=== PATIENT | female | born 1965 | race Caucasian/White ===

== ENCOUNTER 2016-08-18 06:00 | Emergency (ER) | payer MEDICAID ==
--- NOTE | 2016-08-18 06:37 | EDM.PDOC ---
ED HPI GENERAL MEDICAL PROBLEM - General Chief Complaint: General Stated Complaint: neck and head pressure Time Seen by Provider: 08/18/16 06:23 Source of Information: Reports: Patient History Limitations: Reports: No limitations - History of Present Illness INITIAL COMMENTS - FREE TEXT/NARRATIVE: Patient arrives to the ED with complaints of head, neck, and jaw pressure, left side only. She has had a 2 week sinus infection for which she was started on augmentin Thursday. She does complain of some stomach pain and diarrhea that started on Thursday. She did see a chiropractor friend for her neck pain on Thursday. She was adjusted at that time. Chiropractor told her that her neck was not really out of alignment. She denies history of smoking, drinking, or drug use. Medical history includes hypothyroidism and does take synthroid. She also describes chest pressure. Head pressure is described as at the posterior and along her left eye. Denies SOB, LOC, nausea or vomiting, no diaphoresis. No urinary complaints. Given ASA on arrival. Onset: gradual Onset Date: 08/16/16 Duration: Intermittent Location: Reports: face, neck, chest Quality: Reports: Pressure Severity: moderate Associated Symptoms: Reports: chest pain, cough, headaches upper chest Pain Score (Numeric/FACES): 6 - Related Data Allergies Allergy/AdvReac Type Severity Reaction Status Date / Time clarithromycin [From Biaxin] Allergy Blurred Verified 08/18/16 07:14 Vision codeine Allergy Shortness Verified 08/18/16 07:14 of Breath red dye Allergy Rash Verified 08/18/16 07:14 Sulfa (Sulfonamide Allergy Rash Verified 08/18/16 07:14 Antibiotics) green dye Allergy Rash Uncoded 08/18/16 07:14 Home Meds: Home Meds Amoxicillin/Clavulanate K [Augmentin 875 MG/125 MG] 1 tab PO BID 08/18/16 [ History] Levothyroxine Sodium [Synthroid] 50 mcg PO DAILY 08/18/16 [History] ED ROS GENERAL - Review of Systems Review Of Systems: See Below Constitutional: Reports: no symptoms HEENT: Reports: Sinus problem, Other (neck pain/pressure) Respiratory: Reports: No Symptoms Cardiovascular: Reports: Other Endocrine: Reports: no symptoms GI/Abdominal: Reports: No symptoms : Reports: no symptoms Musculoskeletal: Reports: neck pain Skin: Reports: no symptoms Neurological: Reports: No Symptoms Psychiatric: Reports: No symptoms Hematologic/Lymphatic: Reports: no symptoms Immunologic: Reports: no symptoms ED EXAM, GENERAL - Physical Exam Exam: See Below Exam Limited By: No limitations General Appearance: alert, WD/WN, mild distress Eye Exam: bilateral eye: EOMI, normal inspection, PERRL Ears: normal TMs Nose: normal inspection Throat/Mouth: Normal inspection, Normal oropharynx Head: atraumatic, normocephalic Neck: normal inspection, supple Respiratory/Chest: no respiratory distress, lungs clear, normal breath sounds, no accessory muscle use, chest non-tender Cardiovascular: normal peripheral pulses, regular rate, rhythm, no edema, no gallop GI/Abdominal: normal bowel sounds, soft, non tender, no organomegaly Extremities: normal inspection, normal range of motion, non-tender, normal capillary refill Neurological: alert, oriented, CN II-XII intact, normal cognition, normal gait, normal reflexes, no motor/sensory deficits Psychiatric: normal affect, anxious Skin Exam: Warm, Dry, Intact Lymphatic: no adenopathy Course - Vital Signs Last Recorded V/S: Last Vital Signs Temp 36.3 C 08/18/16 06:05 Pulse 82 08/18/16 06:05 Resp 16 08/18/16 06:05 BP 131/74 08/18/16 06:05 Pulse Ox 99 08/18/16 06:05 - Orders/Labs/Meds Orders: Active Orders 24 hr Category Date Time Status EKG Documentation Completion [RC] URGENT Care 08/18/16 06:23 Active Head wo Cont [CT] Stat Exams 08/18/16 06:58 Taken Max Facial Sinus wo Cont [CT] Stat Exams 08/18/16 06:58 Taken Labs: Laboratory Tests 08/18/16 08/18/16 08/18/16 Range/Units 06:43 06:43 06:43 WBC 4.6 (4.0-10.0) x10^3/uL RBC 4.68 (4.00-5.50) x10^6/uL Hgb 13.0 (12.0-16.0) g/dL Hct 40.3 (33.0-47.0) % MCV 86.1 (78.0-93.0) fL MCH 27.8 (26.0-32.0) pg MCHC 32.3 (32.0-36.0) g/dL RDW Coeff of Dari 12.9 (10.0-15.0) % Plt Count 268 (130-400) x10^3/uL Neut % (Auto) 64.8 (50.0-80.0) % Lymph % (Auto) 24.2 L (25.0-50.0) % [place] % (Auto) 9.7 (2.0-11.0) % Eos % (Auto) 0.9 (0.0-4.0) % Baso % (Auto) 0.4 (0.2-1.2) % PT 10.7 (10.0-12.8) SEC INR 0.9 L (2.0-3.5) Sodium 142 (136-145) mmol/L Potassium 3.4 L (3.5-5.1) mmol/L Chloride 103 (98-107) mmol/L Carbon Dioxide 31 (21-32) mmol/L BUN 9 (7-18) mg/dL Creatinine 0.8 (0.55-1.02) mg/dL Est Cr Clr Drug Dosing 70.89 mL/min Estimated GFR (MDRD) > 60 Glucose 101 (74-106) mg/dL Calcium 9.3 (8.5-10.1) mg/dL Corrected Calcium 9.22 (8.5-10.1) mg/dL Total Bilirubin 0.4 (0.2-1.0) mg/dL AST 15 (15-37) U/L ALT 19 (14-59) U/L Alkaline Phosphatase 84 (46-116) U/L Creatine Kinase 37 (26-192) U/L POC Troponin I (0.00-0.08) ng/mL Total Protein 8.1 (6.4-8.2) g/dL Albumin 4.1 (3.4-5.0) g/dL Globulin 4.0 Albumin/Globulin Ratio 1.03 TSH, Ultra Sensitive (0.358-3.74) uIU/mL 08/18/16 08/18/16 Range/Units 06:43 06:48 WBC (4.0-10.0) x10^3/uL RBC (4.00-5.50) x10^6/uL Hgb (12.0-16.0) g/dL Hct (33.0-47.0) % MCV (78.0-93.0) fL MCH (26.0-32.0) pg MCHC (32.0-36.0) g/dL RDW Coeff of Dari (10.0-15.0) % Plt Count (130-400) x10^3/uL Neut % (Auto) (50.0-80.0) % Lymph % (Auto) (25.0-50.0) % [place] % (Auto) (2.0-11.0) % Eos % (Auto) (0.0-4.0) % Baso % (Auto) (0.2-1.2) % PT (10.0-12.8) SEC INR (2.0-3.5) Sodium (136-145) mmol/L Potassium (3.5-5.1) mmol/L Chloride (98-107) mmol/L Carbon Dioxide (21-32) mmol/L BUN (7-18) mg/dL Creatinine (0.55-1.02) mg/dL Est Cr Clr Drug Dosing mL/min Estimated GFR (MDRD) Glucose (74-106) mg/dL Calcium (8.5-10.1) mg/dL Corrected Calcium (8.5-10.1) mg/dL Total Bilirubin (0.2-1.0) mg/dL AST (15-37) U/L ALT (14-59) U/L Alkaline Phosphatase (46-116) U/L Creatine Kinase (26-192) U/L POC Troponin I 0.01 (0.00-0.08) ng/mL Total Protein (6.4-8.2) g/dL Albumin (3.4-5.0) g/dL Globulin Albumin/Globulin Ratio TSH, Ultra Sensitive 1.992 (0.358-3.74) uIU/mL Meds: Medications Discontinued Medications Generic Name Dose Route Start Last Admin Trade Name Freq PRN Reason Stop Dose Admin Aspirin 324 mg 08/18/16 06:38 08/18/16 07:18 Aspirin PO 08/18/16 06:39 324 mg ONETIME ONE Administration Lorazepam 0.5 mg 08/18/16 06:59 08/18/16 07:17 Ativan PO 08/18/16 07:00 0.5 mg ONETIME ONE Administration Departure - Departure Time of Disposition: 08:05 Disposition: Home, Self-Care 01 Condition: good Clinical Impression: Sinusitis, acute Qualifiers: Sinusitis location: maxillary Recurrence: not specified as recurrent Qualified Code(s): J01.00 - Acute maxillary sinusitis, unspecified Instructions: Sinusitis, Adult, [id number] Referrals: Soraida Morgan PA-C [Primary Care Provider] - Forms: ED Department Discharge Additional Instructions: I did change your antibiotic to amoxicillin. Discontinue the augmentin Use a nasal rinse to irrigate your sinus cavities - use distilled water Use a decongestant and antihistamine like pseudoephedrine Please follow up with your primary care provider Call us with any questions or concerns - Problem List & Annotations (1) Sinusitis, acute SNOMED Code(s): 20520357 Code(s): J01.90 - ACUTE SINUSITIS, UNSPECIFIED Status: Acute Priority: Low Qualifiers: Sinusitis location: maxillary Recurrence: not specified as recurrent Qualified Code(s): J01.00 - Acute maxillary sinusitis, unspecified - Problem List Review Problem List Initiated/Reviewed/Updated: Yes - My Orders Last 24 Hours: My Active Orders 08/18/16 06:23 EKG Documentation Completion [RC] URGENT 08/18/16 06:58 Head wo Cont [CT] Stat Max Facial Sinus wo Cont [CT] Stat - Assessment/Plan Last 24 Hours: My Active Orders 08/18/16 06:23 EKG Documentation Completion [RC] URGENT 08/18/16 06:58 Head wo Cont [CT] Stat Max Facial Sinus wo Cont [CT] Stat Assessment:: sinusitis Plan: I did change your antibiotic to amoxicillin. Discontinue the augmentin Use a nasal rinse to irrigate your sinus cavities - use distilled water Use a decongestant and antihistamine like pseudoephedrine Please follow up with your primary care provider Call us with any questions or concerns
[2016-08-18] MEDS ORDERED: Aspirin 81 MG Tab.Chew PO ONE (06:38)
[2016-08-18] MEDS ORDERED: LORazepam 0.5 MG Tab PO ONE (06:59)
[2016-08-18 07:13] VITALS: BP 131/74
[2016-08-18 07:20] LABS: CHLORIDE,CL 103 mmol/L (98-107); SODIUM,NA 142 mmol/L (136-145)
== END 2016-08-18 08:31 | disposition home or self-care (01) ==
LOC: VM.ED 06:00
DX: J01.00 Acute maxillary sinusitis, unspecified (principal); Z88.5 Allergy status to narcotic agent; Z88.2 Allergy status to sulfonamides; Z79.899 Other long term (current) drug therapy
CPT/HCPCS: 36415; 70450; 70486; 80053; 82550; 84443; 84484; 85025; 85610; 93005; 99285; A9270

== ENCOUNTER 2016-09-06 14:01 | Emergency (ER) | payer MEDICAID ==
[2016-09-06] MEDS ORDERED: diphenhydrAMINE 25 MG Cap PO ONE (14:31)
[2016-09-06 14:36] VITALS: BP 130/82
--- NOTE | 2016-09-07 23:24 | ER ---
Date of Service: 09/06/2016 SUBJECTIVE: Kassandra presents to the emergency room with complaints of allergic reaction. The patient states that recently started using some instant nasal drops and since using them, developed itching to her face, sore throat, and swelling to her nose. The patient states that she also was exposed to someone who was spraying their lawn and feels that this may have been the culprit as well. PAST MEDICAL HISTORY: Hypothyroidism. MEDICATIONS: 1. Vitamin B complex. 2. Levothyroxine. ALLERGIES: Clarithromycin, codeine, red dyes, sulfa, and green dye. REVIEW OF SYSTEMS: General: No fever or chills. HEENT: Please see history of present illness. Respiratory: No shortness of breath. Cardiac: Denies any substernal chest pain. No jaw, arm, neck, or back pain. GI: No nausea, vomiting, or diarrhea. No melena, hematochezia, or hematemesis. : Denies any dysuria. Musculoskeletal: No myalgias or arthralgias. Neurologic: No fainting, blackouts, or lightheadedness. PHYSICAL EXAMINATION: General: This is a 51-year-old female patient, who is in no acute distress. Vital Signs: Blood pressure is 130/82, respiratory rate 16, O2 saturations 99%, temperature is 36.1, pulse rate is 74. SKIN: Warm, pink, and dry. HEENT: Head is normocephalic, atraumatic. Eyes, PERRLA. Extraocular movements are intact. Ears, TMs are clear. Mouth, oral mucosa is moist. The patient's nasal mucosa is somewhat inflamed. There is no erythema to the patient's face, however, the patient does relate that the skin to her midface region is itching and burning. No swelling is noted. The patient's airway is patent. She is not experiencing any stridor. Lungs: Clear to auscultation. Heart: Regular rate and rhythm. Abdomen: Soft, nontender. There is no hepatosplenomegaly or masses noted. Extremities: Without edema. ASSESSMENT: Mild allergic reaction. RECOMMENDATIONS: It is unclear what the specific allergen was. The patient was advised to abstain from using the homeopathic nasal drops that she had recently started using. Also, I did offer her an injection of Kenalog, but she refused stating that she did not want to take any steroids. Subsequently, offered her injection of Benadryl, which she refused as well. I then offered her Benadryl orally in pill form, but she refused as the capsule on the outside of the pill was red in color and she was concerned she would be allergic to it. The patient was advised to return to the emergency room if she develops any shortness of breath, chest tightness, weakness, or other worrisome signs or symptoms. All questions were answered. MWK: 09/07/2016 19:48:11 MODL: 09/07/2016 22:11:31 /[id number]
== END 2016-09-06 14:40 | disposition home or self-care (01) ==
LOC: VM.ED 14:01
DX: T78.40XA Allergy, unspecified, initial encounter (principal); E03.9 Hypothyroidism, unspecified; Z88.1 Allergy status to other antibiotic agents; Z88.5 Allergy status to narcotic agent; Z91.048 Other nonmedicinal substance allergy status; Z88.2 Allergy status to sulfonamides
CPT/HCPCS: 99283

== ENCOUNTER 2017-07-28 08:59 | Observation (INO) | payer MEDICAID ==
[2017-07-28 10:10] LABS: CHLORIDE,CL 104 mmol/L (98-107); SODIUM,NA 142 mmol/L (136-145)
[2017-07-28] MEDS ORDERED: Aspirin 81 MG Tab.Chew PO ONE (10:45)
[2017-07-28] MEDS ORDERED: Nitroglycerin 0.4 MG Tab.SL SL ONE (10:45)
[2017-07-28] MEDS ORDERED: Sodium Chloride 0.9% 10 ML Syringe FLUSH PRN (10:45)
[2017-07-28] MEDS: Sodium Chloride 0.9% with KCl 1,000 ML IV SCH ×3 (11:34→21:45)
[2017-07-28] MEDS: Cholecalciferol (Vitamin D3) 1,000 Unit Tab PO SCH (11:34)
[2017-07-28] MEDS: Levothyroxine 50 MCG Tab PO SCH ×2 (11:43→17:16)
[2017-07-28] MEDS ORDERED: GI Cocktail Oral Solution 30 ML PO ONE (12:10)
--- NOTE | 2017-07-28 12:19 | EDM.PDOC ---
ED HPI GENERAL MEDICAL PROBLEM - General Chief Complaint: Chest Pain Stated Complaint: CHEST PAINS Time Seen by Provider: 07/28/17 09:25 Source of Information: Reports: Patient History Limitations: Reports: No Limitations - History of Present Illness INITIAL COMMENTS - FREE TEXT/NARRATIVE: PtPhilippe presents to ER with complaints of L sided chest pain with radiation into her back and L upper extremity. She states that the discomfort dull and achy. She denies any shortness of breath. No weakness. No diaphoresis. She states that she does have some metallic taste in her mouth as well, and burning in her epigastrium. She was seen for a similar event in 2016. She had a cardiac workup which was normal. Her EKG then showed no acute changes, but the computer interpretation indicated a possible old anterior infarct. Onset: Today Onset Date: 07/28/17 Location: Reports: Chest, Abdomen, Upper Extremity, Left Quality: Reports: Ache Associated Symptoms: Reports: Chest Pain, Other (lightheadedness). Denies: Cough, Diaphoresis, Fever/Chills, Malaise mid chest Pain Score (Numeric/FACES): 4 - Related Data Allergies Allergy/AdvReac Type Severity Reaction Status Date / Time aspartame Allergy Cannot Verified 07/28/17 09:33 Remember codeine Allergy Shortness Verified 07/28/17 09:33 of Breath duloxetine Allergy Cannot Verified 07/28/17 09:33 Remember red dye Allergy Rash Verified 07/28/17 09:33 Sulfa (Sulfonamide Allergy Rash Verified 07/28/17 09:33 Antibiotics) clarithromycin [From Biaxin] AdvReac Blurred Verified 07/28/17 11:19 Vision blue dye Allergy Cannot Uncoded 07/28/17 09:33 Remember green dye Allergy Rash Uncoded 07/28/17 09:33 peanuts Allergy Cannot Uncoded 07/28/17 09:33 Remember Belinda [place] Allergy Cannot Uncoded 07/28/17 09:33 Remember Home Meds: Home Meds Levothyroxine Sodium [Synthroid] 50 mcg PO DAILY 08/18/16 [History] Vitamin B Complex [B Complex] 20 drop DAILY 09/06/16 [History] Cholecalciferol (Vitamin D3) [Vitamin D3] 1,000 unit PO DAILY 04/16/17 [History] Elderberry Fruit/Honey [Little Remedies Cough-Immune] 1 tsp PO DAILY 04/16/17 [ History] Past Medical History HEENT History: Reports: Other (See Below) Other 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 [employer] History: Reports: Musculoskeletal History: Reports: Arthritis, Fibromyalgia Neurological History: Reports: Migraines, Vertigo Endocrine/Metabolic History: Reports: Hypothyroidism - Infectious Disease History Infectious Disease History: Reports: Chicken Pox - Past Surgical History HEENT Surgical History: Reports: Adenoidectomy, Tonsillectomy Female Surgical History: Reports: Hysterectomy Social & Family History - Family History Family Medical History: Noncontributory - Tobacco Use Smoking Status *Q: Never Smoker Second Hand Smoke Exposure: No - Caffeine Use Caffeine Use: Reports: Coffee, Soda - Recreational Drug Use Recreational Drug Use: No ED ROS GENERAL - Review of Systems Review Of Systems: See Below Constitutional: Reports: No Symptoms HEENT: Reports: No Symptoms Respiratory: Reports: No Symptoms Cardiovascular: Reports: Chest Pain Endocrine: Reports: No Symptoms GI/Abdominal: Reports: Other (epigastric pain) : Reports: No Symptoms Musculoskeletal: Reports: Arm Pain (L arm pain) Skin: Reports: No Symptoms Neurological: Reports: No Symptoms Psychiatric: Reports: No Symptoms Hematologic/Lymphatic: Reports: No Symptoms Immunologic: Reports: No Symptoms ED EXAM, GENERAL - Physical Exam Exam: See Below Exam Limited By: Altered Mental Status General Appearance: Alert, WD/WN, No Apparent Distress Eye Exam: Bilateral Eye: EOMI, Normal Fundi, Normal Inspection, PERRL Ears: Normal External Exam, Normal Canal, Hearing Grossly Normal, Normal TMs Nose: Normal Inspection, Normal Mucosa, No Blood Throat/Mouth: Normal Inspection, Normal Lips, Normal Teeth, Normal Gums, Normal Oropharynx, Normal Voice, No Airway Compromise Head: Atraumatic, Normocephalic Neck: Normal Inspection, Supple, Non-Tender, Full Range of Motion Respiratory/Chest: No Respiratory Distress, Lungs Clear, Normal Breath Sounds, No Accessory Muscle Use, Chest Non-Tender Cardiovascular: Normal Peripheral Pulses, Regular Rate, Rhythm, No Edema, No Gallop, No JVD, No Murmur, No Rub Peripheral Pulses: 2+: Radial (L), Radial (R) GI/Abdominal: Normal Bowel Sounds, Soft, Non-Tender, No Organomegaly, No Distention, No Abnormal Bruit, No Mass (Female) Exam: Deferred Rectal (Female) Exam: Deferred Back Exam: Normal Inspection, Full Range of Motion, NT Extremities: Normal Inspection, Normal Range of Motion, Non-Tender, Normal Capillary Refill, No Pedal Edema Neurological: Alert, Oriented, CN II-XII Intact, Normal Cognition, Normal Gait, Normal Reflexes, No Motor/Sensory Deficits Psychiatric: Normal Affect, Normal Mood Skin Exam: Warm, Dry, Intact, Normal Color, No Rash Lymphatic: No Adenopathy EKG INTERPRETATION Rhythm: NSR Linn: Normal P-Wave: Present QRS: Normal ST-T: Normal QT: Normal Comparison: NA - No Prior EKG Course - Vital Signs Last Recorded V/S: Last Vital Signs Temp 36.7 C 07/28/17 11:17 Pulse 85 07/28/17 11:17 Resp 20 07/28/17 11:17 BP 123/77 07/28/17 11:17 Pulse Ox 98 07/28/17 11:17 - Orders/Labs/Meds Orders: Active Orders 24 hr Category Date Time Status EKG Documentation Completion [RC] STAT Care 07/28/17 09:16 Active Chest 2V [CR] Stat Exams 07/28/17 09:15 Taken Sodium Chloride 0.9% [Saline Flush] Med 07/28/17 10:45 Active 10 ml FLUSH ASDIRECTED PRN Peripheral IV Insertion Adult [OM.PC] Routine Oth 07/28/17 10:45 Ordered Medication Orders Al Hydroxide/Mg Hydroxide (Gi Cocktail) 30 ml PO ONETIME ONE Stop: 07/28/17 12:11 Cholecalciferol (Vitamin D3) 1,000 units PO DAILY KT Last Admin: 07/28/17 11:34 Dose: Not Given Potassium Chloride/Sodium Chloride (Normal Saline With 40 Meq Kcl) 1,000 mls @ 200 mls/hr IV ASDIRECTED KT Last Admin: 07/28/17 11:34 Dose: 200 mls/hr Levothyroxine Sodium (Synthroid) 50 mcg PO DAILY KT Last Admin: 07/28/17 11:43 Dose: 50 mcg Sodium Chloride (Saline Flush) 10 ml FLUSH ASDIRECTED PRN PRN Reason: Keep Vein Open Labs: Laboratory Tests 07/28/17 07/28/17 07/28/17 Range/Units 09:42 09:42 09:42 WBC 3.4 L (4.0-10.0) x10^3/uL RBC 4.53 (4.00-5.50) x10^6/uL Hgb 12.8 D (12.0-16.0) g/dL Hct 39.9 (33.0-47.0) % MCV 88.1 (78.0-93.0) fL MCH 28.3 (26.0-32.0) pg MCHC 32.1 (32.0-36.0) g/dL RDW Coeff of Dari 13.4 (10.0-15.0) % Plt Count 224 (130-400) x10^3/uL Neut % (Auto) 63.7 (50.0-80.0) % Lymph % (Auto) 27.1 (25.0-50.0) % [place] % (Auto) 8.0 (2.0-11.0) % Eos % (Auto) 0.6 (0.0-4.0) % Baso % (Auto) 0.6 (0.2-1.2) % PT 10.8 (9.8-11.8) SEC INR 1.0 L (2.0-3.5) D-Dimer, Quantitative (<=0.58) mg/LFEU Sodium 142 (136-145) mmol/L Potassium 3.0 L (3.5-5.1) mmol/L Chloride 104 (98-107) mmol/L Carbon Dioxide 29 (21-32) mmol/L BUN 9 (7-18) mg/dL Creatinine 0.8 (0.55-1.02) mg/dL Est Cr Clr Drug Dosing 64.20 mL/min Estimated GFR (MDRD) > 60 Glucose 92 (74-106) mg/dL Calcium 8.8 (8.5-10.1) mg/dL Corrected Calcium 8.48 L (8.5-10.1) mg/dL Magnesium (1.8-2.4) mg/dL Total Bilirubin 0.6 (0.2-1.0) mg/dL AST 19 (15-37) U/L ALT 22 (14-59) U/L Alkaline Phosphatase 66 (46-116) U/L POC Troponin I (0.00-0.08) ng/mL Total Protein 7.4 (6.4-8.2) g/dL Albumin 4.4 (3.4-5.0) g/dL Globulin 3.0 Albumin/Globulin Ratio 1.47 TSH, Ultra Sensitive (0.358-3.74) uIU/mL 07/28/17 07/28/17 07/28/17 Range/Units 09:42 09:42 09:49 WBC (4.0-10.0) x10^3/uL RBC (4.00-5.50) x10^6/uL Hgb (12.0-16.0) g/dL Hct (33.0-47.0) % MCV (78.0-93.0) fL MCH (26.0-32.0) pg MCHC (32.0-36.0) g/dL RDW Coeff of Dari (10.0-15.0) % Plt Count (130-400) x10^3/uL Neut % (Auto) (50.0-80.0) % Lymph % (Auto) (25.0-50.0) % [place] % (Auto) (2.0-11.0) % Eos % (Auto) (0.0-4.0) % Baso % (Auto) (0.2-1.2) % PT (9.8-11.8) SEC INR (2.0-3.5) D-Dimer, Quantitative < 0.19 (<=0.58) mg/LFEU Sodium (136-145) mmol/L Potassium (3.5-5.1) mmol/L Chloride (98-107) mmol/L Carbon Dioxide (21-32) mmol/L BUN (7-18) mg/dL Creatinine (0.55-1.02) mg/dL Est Cr Clr Drug Dosing mL/min Estimated GFR (MDRD) Glucose (74-106) mg/dL Calcium (8.5-10.1) mg/dL Corrected Calcium (8.5-10.1) mg/dL Magnesium 2.0 (1.8-2.4) mg/dL Total Bilirubin (0.2-1.0) mg/dL AST (15-37) U/L ALT (14-59) U/L Alkaline Phosphatase (46-116) U/L POC Troponin I 0.08 (0.00-0.08) ng/mL Total Protein (6.4-8.2) g/dL Albumin (3.4-5.0) g/dL Globulin Albumin/Globulin Ratio TSH, Ultra Sensitive 3.851 H (0.358-3.74) uIU/mL Meds: Medications Generic Name Dose Route Start Last Admin Trade Name Freq PRN Reason Stop Dose Admin Al Hydroxide/Mg Hydroxide 30 ml 07/28/17 12:10 Gi Cocktail PO 07/28/17 12:11 ONETIME ONE Cholecalciferol 1,000 units 07/28/17 11:30 07/28/17 11:34 Vitamin D3 PO Not Given DAILY KT Potassium Chloride/Sodium Chloride 1,000 mls @ 200 mls/hr 07/28/17 11:30 11:34 Normal Saline With 40 Meq Kcl IV 200 mls/hr ASDIRECTED KT Administration Levothyroxine Sodium 50 mcg 07/28/17 11:30 07/28/17 11:43 Synthroid PO 50 mcg DAILY KT Administration Sodium Chloride 10 ml 07/28/17 10:45 Saline Flush FLUSH ASDIRECTED PRN Keep Vein Open Discontinued Medications Generic Name Dose Route Start Last Admin Trade Name Freq PRN Reason Stop Dose Admin Aspirin 324 mg 07/28/17 10:45 07/28/17 11:00 Aspirin PO 07/28/17 10:46 324 mg ONETIME ONE Administration Nitroglycerin 0.4 mg 07/28/17 10:45 07/28/17 11:02 Nitrostat SL 07/28/17 10:46 0.4 mg ONETIME ONE Administration Departure - Departure Time of Disposition: 11:15 Disposition: Refer to Observation Clinical Impression: Chest pain - Discharge Information - Problem List Review Problem List Initiated/Reviewed/Updated: Yes - My Orders Last 24 Hours: My Active Orders 07/28/17 09:15 Chest 2V [CR] Stat 07/28/17 09:16 EKG Documentation Completion [RC] STAT 07/28/17 10:45 Sodium Chloride 0.9% [Saline Flush] 10 ml FLUSH ASDIRECTED PRN Peripheral IV Insertion Adult [OM.PC] Routine - Assessment/Plan Last 24 Hours: My Active Orders 07/28/17 09:15 Chest 2V [CR] Stat 07/28/17 09:16 EKG Documentation Completion [RC] STAT 07/28/17 10:45 Sodium Chloride 0.9% [Saline Flush] 10 ml FLUSH ASDIRECTED PRN Peripheral IV Insertion Adult [OM.PC] Routine Plan: Pt. troponin was on the edge of being positive, so the pt. was admitted observation status for serial troponins. If it is positive, we will transfer pt. for treatment of NSTEMI. If negative, will consult cardiology and likely set her up for echo and stress test as an outpatient. She is code level 1.
[2017-07-28] MEDS: Enoxaparin 60 MG/0.6 ML Syringe SUBCUT SCH ×2 (14:29→20:07)
[2017-07-29 07:49] LABS: CHLORIDE,CL 109 mmol/L (98-107); SODIUM,NA 143 mmol/L (136-145)
[2017-07-29] MEDS: Cholecalciferol (Vitamin D3) 1,000 Unit Tab PO SCH (08:22)
[2017-07-29] MEDS: Enoxaparin 60 MG/0.6 ML Syringe SUBCUT SCH (08:22)
[2017-07-29] MEDS: Levothyroxine 50 MCG Tab PO SCH (08:27)
[2017-07-29 09:57] VITALS: BP 101/67
--- NOTE | 2017-07-29 13:09 | PCM.DCSUM1 ---
Discharge Summary - Hospital Course Free Text/Narrative:: Pt. was admitted for serial troponins and EKG after presenting to ER with chest wall pain. Her serial troponins have all been negative. Her EKG is unchanged. She continues to have chest discomfort, but she has had this chronically for some time, in the same area. She denies any fever or chills. No nausea, vomiting, or diarrhea. No weakness. She states that the pain is worse with palpation, consistent with atypical type chest pain. - Discharge Data Discharge Date: 07/29/17 Discharge Disposition: Home, Self-Care 01 Condition: Good - Discharge Diagnosis/Problem(s) (1) Chest pain, atypical SNOMED Code(s): 957467148 ICD Code: R07.89 - OTHER CHEST PAIN Status: Acute - Patient Summary/Data Recommended Follow-up Testing/Procedures: She is going on vacation tomorrow. I did advise her to follow-up with Soraida Morgan PA-C when she gets back. She probably should have a stress test if she continues to have issues. - Discharge Plan Home Medications: Home Meds Levothyroxine Sodium [Synthroid] 50 mcg PO DAILY 08/18/16 [History] Vitamin B Complex [B Complex] 20 drop DAILY 09/06/16 [History] Cholecalciferol (Vitamin D3) [Vitamin D3] 1,000 unit PO DAILY 04/16/17 [History] Elderberry Fruit/Honey [Little Remedies Cough-Immune] 1 tsp PO DAILY 04/16/17 [ History] Patient Handouts: Nonspecific Chest Pain, [id number] Forms: ED Department Discharge Referrals: Soraida Morgan PA-C [Primary Care Provider] - - Patient Data Vitals - Most Recent: Last Vital Signs Temp 36.6 C 07/29/17 09:57 Pulse 67 07/29/17 09:57 Resp 12 07/29/17 09:57 BP 101/67 07/29/17 09:57 Pulse Ox 98 07/29/17 09:57 Weight - Most Recent: 48.444 kg I&O - Last 24 hours: Intake & Output 07/28/17 07/29/17 07/29/17 22:59 06:59 14:59 Intake Total 2625 480 180 Output Total 7561 517 875 Balance 3330 -726 -897 Lab Results - Last 24 hrs: Laboratory Results - last 24 hr 07/28/17 07/28/17 07/29/17 Range/Units 15:29 21:30 06:40 WBC 4.1 (4.0-10.0) x10^3/uL RBC 4.26 (4.00-5.50) x10^6/uL Hgb 12.0 (12.0-16.0) g/dL Hct 37.8 (33.0-47.0) % MCV 88.7 (78.0-93.0) fL MCH 28.2 (26.0-32.0) pg MCHC 31.7 L (32.0-36.0) g/dL RDW Coeff of Dari 13.5 (10.0-15.0) % Plt Count 208 (130-400) x10^3/uL Neut % (Auto) 57.3 (50.0-80.0) % Lymph % (Auto) 32.6 (25.0-50.0) % [place] % (Auto) 8.7 (2.0-11.0) % Eos % (Auto) 0.7 (0.0-4.0) % Baso % (Auto) 0.7 (0.2-1.2) % Sodium (136-145) mmol/L Potassium (3.5-5.1) mmol/L Chloride (98-107) mmol/L Carbon Dioxide (21-32) mmol/L BUN (7-18) mg/dL Creatinine (0.55-1.02) mg/dL Est Cr Clr Drug Dosing mL/min Estimated GFR (MDRD) Glucose (74-106) mg/dL Calcium (8.5-10.1) mg/dL Corrected Calcium (8.5-10.1) mg/dL Total Bilirubin (0.2-1.0) mg/dL AST (15-37) U/L ALT (14-59) U/L Alkaline Phosphatase (46-116) U/L Troponin I < 0.017 < 0.017 (<=0.056) ng/mL Total Protein (6.4-8.2) g/dL Albumin (3.4-5.0) g/dL Globulin Albumin/Globulin Ratio 07/29/17 Range/Units 06:40 WBC (4.0-10.0) x10^3/uL RBC (4.00-5.50) x10^6/uL Hgb (12.0-16.0) g/dL Hct (33.0-47.0) % MCV (78.0-93.0) fL MCH (26.0-32.0) pg MCHC (32.0-36.0) g/dL RDW Coeff of Dari (10.0-15.0) % Plt Count (130-400) x10^3/uL Neut % (Auto) (50.0-80.0) % Lymph % (Auto) (25.0-50.0) % [place] % (Auto) (2.0-11.0) % Eos % (Auto) (0.0-4.0) % Baso % (Auto) (0.2-1.2) % Sodium 143 (136-145) mmol/L Potassium 3.8 (3.5-5.1) mmol/L Chloride 109 H (98-107) mmol/L Carbon Dioxide 28 (21-32) mmol/L BUN 7 (7-18) mg/dL Creatinine 0.7 (0.55-1.02) mg/dL Est Cr Clr Drug Dosing 71.90 mL/min Estimated GFR (MDRD) > 60 Glucose 91 (74-106) mg/dL Calcium 8.8 (8.5-10.1) mg/dL Corrected Calcium 8.96 (8.5-10.1) mg/dL Total Bilirubin 0.7 (0.2-1.0) mg/dL AST 18 (15-37) U/L ALT 18 (14-59) U/L Alkaline Phosphatase 59 (46-116) U/L Troponin I < 0.017 (<=0.056) ng/mL Total Protein 6.6 (6.4-8.2) g/dL Albumin 3.8 (3.4-5.0) g/dL Globulin 2.8 Albumin/Globulin Ratio 1.36 Med Orders - Current: Current Medications Discontinued Medications Al Hydroxide/Mg Hydroxide (Gi Cocktail) 30 ml PO ONETIME ONE Stop: 07/28/17 12:11 Last Admin: 07/28/17 12:16 Dose: 30 ml Aspirin (Aspirin) 324 mg PO ONETIME ONE Stop: 07/28/17 10:46 Last Admin: 07/28/17 11:00 Dose: 324 mg Cholecalciferol (Vitamin D3) 1,000 units PO DAILY [facility] Last Admin: 07/29/17 08:22 Dose: Not Given Enoxaparin Sodium (Lovenox) 50 mg SUBCUT Q12HR [facility] Last Admin: 07/29/17 08:22 Dose: 50 mg Potassium Chloride/Sodium Chloride (Normal Saline With 40 Meq Kcl) 1,000 mls @ 200 mls/hr IV ASDIRECTED [facility] Last Admin: 07/28/17 21:45 Dose: 200 mls/hr Levothyroxine Sodium (Synthroid) 50 mcg PO DAILY [facility] Last Admin: 07/29/17 08:27 Dose: Not Given Nitroglycerin (Nitrostat) 0.4 mg SL ONETIME ONE Stop: 07/28/17 10:46 Last Admin: 07/28/17 11:02 Dose: 0.4 mg Sodium Chloride (Saline Flush) 10 ml FLUSH ASDIRECTED PRN PRN Reason: Keep Vein Open Last Admin: 07/29/17 08:29 Dose: 10 ml *Q Meaningful Use (DIS) - VTE *Q VTE Criteria *Q: - Stroke *Q Stroke Criteria *Q: - AMI *Q AMI Criteria *Q:
== END 2017-07-29 10:50 | disposition home or self-care (01) ==
LOC: VM.ED 08:59 → VM.MS 10:48
PROVIDERS: ADMIT Physician Assistant; ATTEND Physician Assistant
DX: R07.89 Other chest pain (principal); E03.9 Hypothyroidism, unspecified; Z79.899 Other long term (current) drug therapy; Z88.2 Allergy status to sulfonamides; Z88.1 Allergy status to other antibiotic agents; Z91.010 Allergy to peanuts; Z91.041 Radiographic dye allergy status
CPT/HCPCS: 36415; 71046; 80053; 83735; 84443; 84484; 85025; 85379; 85610; 93005; 99285; A9270-GY; J1650; J3480; J7050

== ENCOUNTER 2018-07-20 23:35 | Emergency (ER) | payer MEDICAID ==
--- NOTE | 2018-07-20 23:47 | EDM.PDOC ---
ED HPI GENERAL MEDICAL PROBLEM - General Chief Complaint: Abdominal Pain Stated Complaint: abdominal pain, back pain Time Seen by Provider: 07/20/18 23:45 Source of Information: Reports: Patient, RN, RN Notes Reviewed History Limitations: Reports: No Limitations - History of Present Illness INITIAL COMMENTS - FREE TEXT/NARRATIVE: Patient presents per pedis to the ED at [facility] with complaints of left upper and lower abdominal pain 2/2 to blunt injury. Patient states a 270# person fell from a bed and landed into the patient's abdomen, pushing her up against a dresser that was approximately 4-6 inches away. Patient states she has radiating pain to the left shoulder, left neck, and left arm. No CVA tenderness. Patient denies any hematuria. Patient denies any head injury or trauma. Pain is relieved by sitting up. Patient is aggravated while lying down. No home treatments for her presenting symptoms. Patient denies any numbness, tingling, paresthesia to any extremity. No previous injuries or trauma to abdomen. Onset: Today Onset Date: 07/20/18 Abdomen Pain Score (Numeric/FACES): 5 - Related Data Allergies Allergy/AdvReac Type Severity Reaction Status Date / Time aspartame Allergy Cannot Verified 07/21/18 00:00 Remember codeine Allergy Shortness Verified 07/21/18 00:00 of Breath duloxetine Allergy Cannot Verified 07/21/18 00:00 Remember red dye Allergy Rash Verified 07/21/18 00:00 Sulfa (Sulfonamide Allergy Rash Verified 07/21/18 00:00 Antibiotics) clarithromycin [From Biaxin] AdvReac Blurred Verified 07/21/18 00:00 Vision blue dye Allergy Cannot Uncoded 07/21/18 00:00 Remember green dye Allergy Rash Uncoded 07/21/18 00:00 peanuts Allergy Cannot Uncoded 07/21/18 00:00 Remember Belinda [place] Allergy Cannot Uncoded 07/21/18 00:00 Remember Home Meds: Home Meds Levothyroxine Sodium [Synthroid] 50 mcg PO DAILY 08/18/16 [History] Vitamin B Complex [B Complex] 20 drop DAILY 09/06/16 [History] Cholecalciferol (Vitamin D3) [Vitamin D3] 1,000 unit PO DAILY 04/16/17 [History] Elderberry Fruit/Honey [Little Remedies Cough-Immune] 1 tsp PO DAILY 04/16/17 [ History] Past Medical History HEENT History: Reports: Other (See Below) Other 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 [employer] History: Reports: Musculoskeletal History: Reports: Arthritis, Fibromyalgia Neurological History: Reports: Migraines, Vertigo Endocrine/Metabolic History: Reports: Hypothyroidism - Infectious Disease History Infectious Disease History: Reports: Chicken Pox - Past Surgical History HEENT Surgical History: Reports: Adenoidectomy, Tonsillectomy Female Surgical History: Reports: Hysterectomy Social & Family History - Family History Family Medical History: Noncontributory - Caffeine Use Caffeine Use: Reports: Coffee, Soda ED ROS GENERAL - Review of Systems Review Of Systems: See Below Constitutional: Denies: Fever, Chills Respiratory: Denies: Shortness of Breath, Cough Cardiovascular: Denies: Chest Pain, Palpitations GI/Abdominal: Reports: Abdominal Pain. Denies: Nausea, Vomiting Musculoskeletal: Reports: Shoulder Pain, Back Pain, Muscle Pain, Muscle Stiffness Skin: Reports: No Symptoms Neurological: Reports: No Symptoms ED EXAM, GI/ABD - Physical Exam Exam: See Below Exam Limited By: No Limitations General Appearance: Alert, No Apparent Distress Respiratory/Chest: No Respiratory Distress, Lungs Clear, Normal Breath Sounds Cardiovascular: Normal Peripheral Pulses, Regular Rate, Rhythm GI/Abdominal Exam: Normal Bowel Sounds, Tender. No: Distended, Guarding, Rebound Back Exam: Normal Inspection, Full Range of Motion. No: CVA Tenderness (L) Extremities: Normal Inspection Neurological: Alert, Oriented Skin Exam: Warm, Dry, Intact, Normal Color Course - Vital Signs Last Recorded V/S: Last Vital Signs Temp 37.1 C 07/20/18 23:48 Pulse 74 07/20/18 23:48 Resp 18 07/20/18 23:48 BP 123/77 07/20/18 23:48 Pulse Ox - Orders/Labs/Meds Orders: Active Orders 24 hr Category Date Time Status Abdomen 2V AP Flat Upright [CR] Stat Exams 07/20/18 23:46 Taken Chest 2V [CR] Stat Exams 07/20/18 23:46 Taken - Radiology Interpretation Free Text/Narrative:: Xray Abd: mild amount of fecal matter Chest: no acute fracture or dislocations See scanned reports in EMR for details Departure - Departure Time of Disposition: 00:48 Disposition: Home, Self-Care 01 Condition: Good Clinical Impression: Muscle contusion Blunt injury of abdomen Qualifiers: Encounter type: initial encounter Qualified Code(s): S39.91XA - Unspecified injury of abdomen, initial encounter - Discharge Information *PRESCRIPTION DRUG MONITORING PROGRAM REVIEWED*: Not Applicable *COPY OF PRESCRIPTION DRUG MONITORING REPORT IN PATIENT SHERIE: Not Applicable Instructions: Blunt Abdominal Trauma, Contusion, [id number] Forms: ED Department Discharge Additional Instructions: 1. Stay well hydrated and rest 2. Take Advil/Tylenol as needed 3. Use a heating pad to painful areas 4. See your PCP as symptoms warrant - Problem List Review Problem List Initiated/Reviewed/Updated: Yes - My Orders Last 24 Hours: My Active Orders 07/20/18 23:46 Abdomen 2V AP Flat Upright [CR] Stat Chest 2V [CR] Stat - Assessment/Plan Last 24 Hours: My Active Orders 07/20/18 23:46 Abdomen 2V AP Flat Upright [CR] Stat Chest 2V [CR] Stat Assessment:: Abdominal blunt injury Muscle contusions Plan: Xrays discussed with patient. No acute findings or pathology. Recommend rest and treat with Advil/Tylenol. See PCP as symptoms warrant
[2018-07-20 23:59] VITALS: BP 123/77
--- NOTE | 2018-07-21 08:01 | CR ---
[id number] RAD/RAD Abd Flat and Upright 2V EXAM: RAD Abd Flat and Upright 2V INDICATION: BLUNT INJURY. COMPARISON: None. DISCUSSION: Unobstructed bowel gas pattern. No radiographically evident pneumoperitoneum. Moderate amount of retained stool within the colon. IMPRESSION: Moderate amount of retained stool within the colon. No evidence of obstruction. Med Crain DO 07/21/18 0800 Thank you for allowing us to participate in the care of your patient.
--- NOTE | 2018-07-21 08:02 | CR ---
[id number] RAD/RAD Chest PA And Lateral EXAM: RAD Chest PA And Lateral INDICATION: BLUNT INJURY. COMPARISON: July 28, 2017. DISCUSSION: Cardiomediastinal silhouette is normal in size and contour. No infiltrate, effusion, pneumothorax, or edema. Pulmonary hyperinflation. IMPRESSION: No acute cardiopulmonary abnormality. Med Crain DO 07/21/18 0801 Thank you for allowing us to participate in the care of your patient.
== END 2018-07-21 01:00 | disposition home or self-care (01) ==
LOC: VM.ED 23:35
DX: S30.1XXA Contusion of abdominal wall, initial encounter (principal); E03.9 Hypothyroidism, unspecified; Z88.5 Allergy status to narcotic agent; Z88.8 Allergy status to other drugs, medicaments and biological substances; Z91.041 Radiographic dye allergy status; Z91.010 Allergy to peanuts; Z79.899 Other long term (current) drug therapy; W06.XXXA Fall from bed, initial encounter
CPT/HCPCS: 71046; 74019; 99284-25

== ENCOUNTER 2021-10-06 17:35 | Emergency (ER) | payer MEDICAID ==
[2021-10-06 17:46] VITALS: BP 122/74; PULSE 67
== END 2021-10-06 18:10 | disposition home or self-care (01) ==
LOC: VM.ED 17:35
DX: S06.0X0A Concussion without loss of consciousness, initial encounter (principal); S00.83XA Contusion of other part of head, initial encounter; E03.9 Hypothyroidism, unspecified; Z91.010 Allergy to peanuts; Z91.041 Radiographic dye allergy status; Z88.2 Allergy status to sulfonamides; Z88.5 Allergy status to narcotic agent; Z88.8 Allergy status to other drugs, medicaments and biological substances; Z79.899 Other long term (current) drug therapy; W22.09XA Striking against other stationary object, initial encounter
CPT/HCPCS: 99283

== ENCOUNTER 2021-11-03 18:00 | Emergency (ER) | payer MEDICAID ==
[2021-11-03 19:10] VITALS: BP 136/81; PULSE 72
== END 2021-11-03 18:58 | disposition home or self-care (01) ==
LOC: VM.ED 18:00
DX: S61.412A Laceration without foreign body of left hand, initial encounter (principal); S43.402A Unspecified sprain of left shoulder joint, initial encounter; E03.9 Hypothyroidism, unspecified; Z88.8 Allergy status to other drugs, medicaments and biological substances; Z88.5 Allergy status to narcotic agent; Z88.2 Allergy status to sulfonamides; Z88.1 Allergy status to other antibiotic agents; Z91.010 Allergy to peanuts; Z91.041 Radiographic dye allergy status; Z79.899 Other long term (current) drug therapy; W26.8XXA Contact with other sharp object(s), not elsewhere classified, initial encounter
CPT/HCPCS: 12001; 99283; 99283-25